=== PATIENT | female | born 1990 | race Caucasian/White ===

== ENCOUNTER 2018-12-23 15:16 | Emergency (ER) | payer BC ==
[2018-12-23 16:00] LABS: #Basophils 0.1 thou/uL (0.0-0.2); #Eosinphils 0.3 thou/uL (0.0-0.7); #Monocytes 0.6 thou/uL (0.11-0.59); #Neutrophils 7.6 thou/uL (1.40-6.50); %Basophils 0.7 % (0.0-1.0); %Eosinophils 2.5 % (0.0-10.0); %Lymphocytes 19.2 % (21.0-51.0); %Monocytes 5.3 % (0.0-10.0); %Neutrophils 72.3 % (42.0-75.0); Hemoglobin 12.4 g/dL (12.0-16.0); Mean Corpuscular HGB CONC 34.9 g/dL (32.0-36.0); Mean Corpuscular Hemoglobin 31.4 pg (27.0-31.0); Mean Corpuscular Volume 89.8 fL (78.0-98.0); Mean Platelet Volume 8.6 fL (7.4-10.4); Platelet Count 168 thou/uL (130-400); RBC Distribution Width 12.1 % (11.5-14.5); Red Blood Cell (RBC) Count 3.96 mill/uL (4.20-5.40); White Blood Cell (WBC) Count 10.5 thou/uL (4.8-10.8)
[2018-12-23 16:22] LABS: ALT (SGPT) 11 U/L (8-55); AST (SGOT) 15 U/L (5-34); Albumin 3.9 g/dL (3.5-5.0); Alkaline Phosphatase 51 U/L (40-150); Anion Gap 12 mmol/L (10-20); BUN (Urea Nitrogen) 6 mg/dL (7.0-18.7); Bilirubin, Total 0.3 mg/dL (0.2-1.2); CK (CPK) 12 U/L (29-168); Calc. Creatinine Clearance 0 mL/min (70-130); Calcium 8.8 mg/dL (7.8-10.44); Carbon Dioxide 22 mmol/L (22-29); Chloride 108 mmol/L (98-107); Estimated GFR-MDRD Greater than 90; Globulin 2.3 g/dL (2.4-3.5); Glucose 101 mg/dL (70-105); Potassium 3.9 mmol/L (3.5-5.1); Protein, Total 6.2 g/dL (6.0-8.3); Sodium 138 mmol/L (136-145)
[2018-12-23] MEDS ORDERED: Acetaminophen 500 MG TAB ONE (17:05)
--- NOTE | 2018-12-23 17:11 | RAD ---
EXAM: Portable chest PROVIDED CLINICAL HISTORY: Chest pain COMPARISON: 08/14/2015 FINDINGS: Cardiac and mediastinal silhouette is within normal limits. No focal consolidation, pleural fluid or pneumothorax evident. IMPRESSION: No evidence for an acute cardiopulmonary process.
--- NOTE | 2018-12-24 12:12 | EKG ---
Test Reason : Blood Pressure : / mmHG Vent. Rate : 079 BPM Atrial Rate : 079 BPM P-R Int : 122 ms QRS Dur : 092 ms QT Int : 360 ms P-R-T Axes : 010 040 025 degrees QTc Int : 412 ms Normal sinus rhythm Normal ECG Confirmed by SPENCER SAMPSON D.O. ([id number]), editor book MENG PEGUERO ([id number]) on 12/24/2018 12:12:09 PM Referred By: Confirmed By:SPENCER SAMPSON D.O.
== END 2018-12-23 18:51 | disposition home or self-care (01) ==
LOC: ERS 15:16
DX: O99.89 Other specified diseases and conditions complicating pregnancy, childbirth and the puerperium (principal); R06.02 Shortness of breath; Z3A.21 21 weeks gestation of pregnancy
CPT/HCPCS: 36415; 71045; 80053; 82550; 83880; 84484; 85025; 85379; 93005

== ENCOUNTER 2019-01-11 04:05 | Day surgery (SDC) | payer BC ==
[2019-01-11 04:40] VITALS: BMI 29.0
[2019-01-11 05:21] LABS: Amnisure Test No Membranes Rupture (No Rupture)
[2019-01-11 05:22] LABS: Amnisure Internal Control QC ACCEPTABLE (ACCEPTABLE)
[2019-01-11] MEDS ORDERED: hydrALAZINE 20 MG/ML VIAL SLOW IVP PRN (05:59)
--- NOTE | 2019-01-11 07:01 | PRG ---
DATE OF SERVICE: 01/11/2019 CHIEF COMPLAINT: Leakage of fluid. HISTORY OF PRESENT ILLNESS: The patient is a 28-year-old G2, P1 female with an intrauterine at 25 weeks gestation, who is presenting to Labor and Delivery after experiencing some vaginal wetness these last couple of days. The patient initially thought it was due to being outside in the heat and began to worry this morning thinking it may be something more serious. The patient denies needing to use a pad, just reports wetness requiring her to change her underwear a couple of times in the last few days. The patient denies any persistence. The patient denies vaginal bleeding. She denies any change in her discharge other than described. She denies any recent illness, fever, falls, headache, chest pain, or shortness of breath. She has recently been evaluated for shortness of breath and is currently on a heart monitor, but states that seems to have gotten better. She denies diarrhea, constipation, hip problems, knee problems, or muscle weakness. Denies any new rashes, vaginal bleeding, leakage of fluid, urinary urgency, or frequency. PAST MEDICAL HISTORY: Negative. PAST SURGICAL HISTORY: Negative. OBSTETRIC HISTORY: She had HELLP syndrome with her last . SOCIAL HISTORY: Denies drug, alcohol, or tobacco use. ALLERGIES: AMOXICILLIN, CEPHALEXIN AND IBUPROFEN. CURRENT MEDICATIONS: She is on a daily aspirin and a vitamin with iron. PHYSICAL EXAMINATION: VITAL SIGNS: Blood pressure 116/72, heart rate of 82, respiratory rate of 18, temperature 98.4. GENERAL: She appears to be in no acute distress. She is alert, oriented, cooperative, and pleasant to interact with. HEENT: Head is normocephalic, atraumatic. LUNGS: Clear to auscultation bilaterally. HEART: Has regular rate and rhythm. ABDOMEN: Gravid and soft, nontender. EXTREMITIES: Nontender, nonedematous. : Vulva is without masses, lesions, or erythema. Perineum does appear slightly moistened. On speculum exam, there is a minimal amount of discharge present. No noticeable odor or distinct qualities of the discharge. Cervix is visibly closed and full. Cervix appears as nonerythematous and no visible lesions. VPIII was collected. LABORATORY DATA: AmniSure test was negative, collected by the nursing staff. VPIII is pending. ASSESSMENT AND PLAN: The patient is a 28-year-old G2, P1 female with an intrauterine at 25 weeks gestation, who came in for some leakage of fluid. There is no evidence of rupture of membranes at this time as supported by negative AmniSure test and negative pooling on physical exam. A VPIII is pending, which should result later in the morning. The patient has been given reassurance and is being discharged to home. She has a followup appointment with Ms. Kiarra Lucero in 2 weeks, which we have encouraged that she keep. The patient will be calling back later this morning after she wakes to get her VPIII results. Job ID: [id number] MTDD
--- NOTE | 2019-01-11 13:05 | PDOC.EVN ---
Event Note - Event Note Event Note: Post Triage lab check: BV noted Called in Flagyl 500mg po BID x [address] at her request.
== END 2019-01-11 06:10 | disposition home or self-care (01) ==
LOC: L&D/OP 04:05
PROVIDERS: ATTEND Obstetrics & Gynecology
DX: O99.89 Other specified diseases and conditions complicating pregnancy, childbirth and the puerperium (principal); N89.8 Other specified noninflammatory disorders of vagina; Z3A.25 25 weeks gestation of pregnancy; Z79.82 Long term (current) use of aspirin; Z79.899 Other long term (current) drug therapy; Z88.0 Allergy status to penicillin; Z88.1 Allergy status to other antibiotic agents; Z88.8 Allergy status to other drugs, medicaments and biological substances
CPT/HCPCS: 84112; 87480; 87510; 87660

== ENCOUNTER 2019-03-04 23:21 | Day surgery (SDC) | payer BC ==
[2019-03-04 23:45] VITALS: BP 116/72; TEMP 98.1; BMI 30.2
[2019-03-05] MEDS ORDERED: hydrALAZINE 20 MG/ML VIAL SLOW IVP PRN (00:21)
--- NOTE | 2019-03-05 00:23 | PDOC.FPROB ---
FMR OB H&P: HPI - History of Present Illness Chief Complaint: abdominal cramping Indentification: 28 y/o @ 32.3 WGA History of Present Illness: Presents for abdominal cramping since 1930 tonight. She reports it feels like her abdomen is tightening up every 5 minutes or so and it is not painful. She reports drinking plenty of water after this started, but it has continued so she decided to come in. She endorses good movement. Denies vaginal bleeding, d/c, LOF, dysuria, hematuria. Primary Care Physician: Juana Lucero FMR OB H&P: Current - Care : 2 Para: 0101 Gestational age: 32.3 FMR OB H&P: History - Past Medical History PMH: None - OB History OB History: 1 prior - induction for severe pre-e/HELLP - Surgical History Sx History: Denies - Social History Social History: Denies tobacco, EtOH, or drug use - Family History Family History: PGF - brain aneurysm FMR OB H&P: Medications - Current Home Medications: Medication Instructions Recorded Confirmed Type Aspirin [Ecotrin] 81 mg PO DAILY 01/11/19 03/04/19 History Vitamin 1 tablet PO DAILY 01/11/19 03/04/19 History Allergies/Adverse Reactions: Allergies Allergy/AdvReac Type Severity Reaction Status Date / Time amoxicillin Allergy Intermediate Hives Verified 01/11/19 04:37 cephalexin monohydrate Allergy Verified 08/11/16 11:13 [From Keflex] ibuprofen Allergy Verified 08/11/16 11:13 FMR OB H&P: ROS - Review of Systems General: denies: fever/chills, fatigue Eyes: denies: vision changes, double vision ENT: denies: nasal congestion, sore throat Cardiovascular: denies: chest pain, edema Respiratory: denies: cough, shortness of breath Gastrointestinal: reports: abdominal pain. denies: nausea, vomiting, diarrhea, constipation Genitourinary (Female): denies: dysuria, hematuria, vaginal discharge, vaginal bleeding, vaginal pressure Musculoskeletal: denies: pain, tenderness Neurologic: denies: numbness, weakness Integumentary: denies: itching, rash FMR OB H&P: Vital Signs - Maternal Vital signs: Vital Signs - First Documented Temp Pulse Resp BP 98.1 F 82 18 116/72 03/04/19 23:41 03/04/19 23:41 03/04/19 23:41 03/04/19 23:41 - Heart Tones Baseline: 130 Variability: moderate Acceleration: present Deceleration: absent Category: category 1 [place] contractions every: None FMR OB H&P: Physical Exam - Physical Exam General: NAD, awake, alert and oriented HEENT: MMM, conjunctiva clear, grossly normal vision, grossly normal hearing Neck: supple, no LAD Heart: pulses present, no edema General: no respiratory distress Abdomen: soft, gravid, non-tender Musculoskeletal: normal gait and station, pulses present Neurological: no tremor, no focal deficit Skin: good tugor, capillary refill <2 seconds - Pelvic Exam SVE: closed/thick/high FMR OB H&P: A/P - Problem List (1) contractions Current Visit: Yes Status: Acute Code(s): O47.9 - FALSE LABOR, UNSPECIFIED Assessment and Plan: Pt presents due to abdominal cramping, no ctx on toco Pt checked and was closed/thick/high -Encouraged hydration -Continue f/u with [facility] -Gave labor precautions Disposition: d/c home as low suspicion of labor. Return precautions given. Discussion: Date/Time: 03/05/1920 This H&P was discussed with Dr. Concepcion who agrees with the above documentation and plan. Signature: Michelle Wolff MD, PGY-3
--- NOTE | 2019-03-05 01:00 | HP ---
TIME OF EVALUATION: By me was 0015 hours to 0030 hours. LOCATION: Triage in Labor and Delivery bed A. This is a patient of Kiarra Lucero CNM The patient was first seen by Michelle Wolff MD and this is my faculty attestation. I have seen and evaluated the patient at bedside. I have performed a cervical examination myself. CHIEF COMPLAINT: The patient here with possible contractions at 32 weeks. HISTORY OF PRESENT ILLNESS: This is a 28-year-old G2, P1, at 32 weeks and 3 days with complaint of possible contractions versus [place] Villegas. She denies leakage of fluid or vaginal bleeding and has good movement. She denies any urinary complaints and has no recent trauma. REVIEW OF SYSTEMS: Complete review of systems was checked and was otherwise negative, unless specified in the HPI. PAST OB HISTORY: Includes an early induction at 36 weeks for -induced hypertension/HELLP syndrome. PAST MEDICAL HISTORY: Otherwise negative. MEDICATIONS: Include vitamins and aspirin. ALLERGIES: AMOXICILLIN, KEFLEX, AND IBUPROFEN. PHYSICAL EXAMINATION: VITAL SIGNS: Her blood pressure is 116/72, and she is afebrile. Clinically, she is in no acute distress. ABDOMEN: Soft and nontender. : I performed a vaginal exam myself and find her cervix to be closed, thick, and high. There is no evidence of vaginal bleeding or leakage of fluid on exam. On monitor, I have reviewed the strip and it is category 1/reactive nonstress test. There are no contractions on tocodynamometer. ASSESSMENT: This is a G2, P1, at 32 weeks and 3 days with suspected [place] Vil[place] contractions as her cervix is closed. PLAN: 1. Reassurance given. 2. Plan of care reviewed with her. 3. Okay for outpatient management. Job ID: [id number]
== END 2019-03-05 00:37 | disposition home health service (06) ==
LOC: L&D/OP 23:21
PROVIDERS: ATTEND Advanced Practice Midwife
DX: O47.03 False labor before 37 completed weeks of gestation, third trimester (principal); Z3A.32 32 weeks gestation of pregnancy; Z79.82 Long term (current) use of aspirin; Z88.0 Allergy status to penicillin; Z88.1 Allergy status to other antibiotic agents; Z88.6 Allergy status to analgesic agent

== ENCOUNTER 2019-04-04 15:13 | Day surgery (SDC) | payer BC ==
[2019-04-04 16:06] VITALS: BP 136/90; TEMP 98.1; BMI 32.0
[2019-04-04] MEDS ORDERED: hydrALAZINE 20 MG/ML VIAL SLOW IVP PRN (16:15)
--- NOTE | 2019-04-04 16:16 | PDOC.EVN ---
Event Note - Event Note Event Note: At Bedside now Eval of BP and CBC, and CMP
--- NOTE | 2019-04-04 16:18 | PDOC.LDHP ---
Labor and Delivery H&P HPI: Here for BP observation Patient of Edin Lucero, states BP at home 130/90s HPi: 28 yo with HX IOL at 36 weeks in past for HELLP. here for boderline BPs at home, and prior HX. No visual changes or RUQ pain. Good FM. no VB, no LOF , rare CTX. Review of Systems: complete ROS completed and as per HPI Current gestational age (weeks): 36 (6 days) Due date: 04/26/19 Dating criteria: last menstrual period Grav: 2 Para: 1 OB History Details: PTB x 1 at 36 weeks Current complications: gestational hypertension Abnormal US findings: No Past Medical History: None Current medications: none, other (ASA) Previous surgical history: other ([place]) Allergies/Adverse Reactions: Allergies Allergy/AdvReac Type Severity Reaction Status Date / Time amoxicillin Allergy Intermediate Hives Verified 01/11/19 04:37 cephalexin monohydrate Allergy Verified 08/11/16 11:13 [From Keflex] ibuprofen Allergy Verified 04/04/19 15:58 Social history: none - Physical Exam Vital signs reviewed and normal: yes (130/85 77 18) General: NAD Heart: RRR Lungs: CTAB Abdomen: gravid Extremeties: no edema FHT: category 1 [place] contractions every: none - Assessment 36 weeks 6 days with possible GHTN...here BPs ok. HX HEELP - Plan Plan: observation in L&D (Serial BPs; Draw CBC and CMP, follow for now...NST reactive)
--- NOTE | 2019-04-04 16:51 | PDOC.EVN ---
Event Note - Event Note Event Note: BPs 130/80s.. Labs just drawn
[2019-04-04 16:56] LABS: Hemoglobin 14.5 g/dL (12.0-16.0); Mean Corpuscular Hemoglobin 32.4 pg (27.0-31.0); Mean Corpuscular Volume 89.9 fL (78.0-98.0); Mean Platelet Volume 10.2 fL (7.4-10.4); Platelet Count 138 thou/uL (130-400); RBC Distribution Width 12.2 % (11.5-14.5); Red Blood Cell (RBC) Count 4.49 mill/uL (4.20-5.40); White Blood Cell (WBC) Count 10.8 thou/uL (4.8-10.8)
[2019-04-04 17:20] LABS: ALT (SGPT) 13 U/L (8-55); AST (SGOT) 21 U/L (5-34); Albumin 3.5 g/dL (3.5-5.0); Alkaline Phosphatase 157 U/L (40-110); Anion Gap 12 mmol/L (10-20); BUN (Urea Nitrogen) 7 mg/dL (7.0-18.7); Bilirubin, Total 0.4 mg/dL (0.2-1.2); Calc. Creatinine Clearance 164 mL/min (70-130); Calcium 10.2 mg/dL (7.8-10.44); Carbon Dioxide 22 mmol/L (22-29); Chloride 106 mmol/L (98-107); Estimated GFR-MDRD Greater than 90; Globulin 3.2 g/dL (2.4-3.5); Glucose 85 mg/dL (70-105); Potassium 3.9 mmol/L (3.5-5.1); Protein, Total 6.7 g/dL (6.0-8.3); Sodium 136 mmol/L (136-145)
--- NOTE | 2019-04-04 17:28 | PDOC.EVN ---
Event Note - Event Note Event Note: Labs are normal F/U BP in 2 days in clinic
== END 2019-04-04 17:40 | disposition home or self-care (01) ==
LOC: L&D/OP 15:13
PROVIDERS: ATTEND Advanced Practice Midwife
DX: O13.3 Gestational [pregnancy-induced] hypertension without significant proteinuria, third trimester (principal); Z3A.36 36 weeks gestation of pregnancy; Z79.82 Long term (current) use of aspirin; Z88.0 Allergy status to penicillin; Z88.1 Allergy status to other antibiotic agents; Z88.8 Allergy status to other drugs, medicaments and biological substances
CPT/HCPCS: 36415; 80053; 85027; 99283

== ENCOUNTER 2019-04-15 00:48 | Day surgery (SDC) | payer BC ==
[2019-04-15 01:24] VITALS: BMI 29.9
[2019-04-15] MEDS ORDERED: hydrALAZINE 20 MG/ML VIAL SLOW IVP PRN (01:35)
--- NOTE | 2019-04-15 01:42 | PDOC.FPROB ---
FMR OB H&P: HPI - History of Present Illness Chief Complaint: elevated BP with vision changes at home Indentification: @ 38.3 WGA (JOVANNI 04/26/19) History of Present Illness: 28YO @ 38.3 WGA (JOVANNI 04/26/19) who presents to L&D after having vision changes at home with associated elevated BP @ ~ 21:30 yesterday evening. Patient reports she had sudden onset vision changes while sitting at home looking at her phone so she checked her BP which she noted to be 147/98. She then turned off the lights and fans and her vision changes subsided and rechecked her BP ~ 2 hours later and it was still elevated at 143/96. She states she then called the on-call line for her PCP's office who advised her to come to L&D for monitoring and evaluation. She reports some associated intermittent RUQ discomfort that she attributes to positioning/movement that began many days ago. Denies any associated headache but does reports feeling like her hands and feet are slightly more swollen than usual. No chest pain, SOB, fever/chills or N/V/D. Primary Care Physician: Jazmine FMR OB H&P: Current - Care : 2 Para: 0101 Gestational age: 38.3 Due date: 04/26/19 Course/Complications: borderline BPs but no diagnosis of gestational HTN or pre-e this - OB Labs Blood type: O RH: positive Antibody Screen: negative HIV: negative RPR: negative HepBsAg: negative Rubella: immune Urine drug screen: not done Gonorrhea: negative Chlamydia: negative GBS: negative FMR OB H&P: History - Past Medical History PMH: none - OB History OB History: #1: HELLP syndrome requiring IOL @ 36 WGA; - MEAL PACKER History MEAL PACKER History: Pap UTD & NILM; No h/o STIs - Surgical History Sx History: none - Social History Social History: No TAD - Family History Family History: Mom- pre-e during with patient FMR OB H&P: Medications - Current Home Medications: Medication Instructions Recorded Confirmed Type Aspirin [Ecotrin Low Strength] 81 mg PO DAILY 01/11/19 04/04/19 History Vitamin 1 tablet PO DAILY 01/11/19 04/04/19 History Allergies/Adverse Reactions: Allergies Allergy/AdvReac Type Severity Reaction Status Date / Time amoxicillin Allergy Intermediate Hives Verified 01/11/19 04:37 cephalexin monohydrate Allergy Verified 08/11/16 11:13 [From Keflex] ibuprofen Allergy Verified 04/04/19 15:58 FMR OB H&P: ROS - Review of Systems General: denies: fever/chills, weight/appetite/sleep changes Eyes: reports: vision changes, scotomas ENT: reports: rhinorrhea. denies: nasal congestion, sore throat Cardiovascular: reports: edema. denies: chest pain, palpitation Respiratory: denies: cough, shortness of breath Gastrointestinal: reports: abdominal pain. denies: nausea, vomiting, diarrhea, constipation Genitourinary (Female): denies: dysuria, hematuria, vaginal discharge, vaginal pain, vaginal bleeding, contractions, vaginal pressure Musculoskeletal: reports: pain (back pain). denies: arthritis/arthralgias Neurologic: denies: seizures, headache Integumentary: denies: itching, rash Endocrine: denies: polydipsia, polyuria Psychological: denies: depression, anxiety FMR OB H&P: Vital Signs - Maternal Vital signs: BP: 143/92 HR: 65 - Heart Tones Baseline: 130 Variability: moderate Acceleration: present Deceleration: absent [place] contractions every: no contractions noted FMR OB H&P: Physical Exam - Physical Exam General: NAD, awake, alert and oriented HEENT: normocephalic and atraumatic, MMM, conjunctiva clear, grossly normal vision, grossly normal hearing Neck: supple, FROM Heart: RRR, normal S1/S2, no murmurs/rubs/gallops, pulses present, no edema General: CTAB, no respiratory distress, good air movement, no rales/rhonchi, no wheezing, no retractions Abdomen: gravid, non-tender, bowel sound present, other Musculoskeletal: normal gait and station, FROM in all four extremities Neurological: cranial nerves II through XII intact, no focal deficit Skin: no rash, good tugor Lymphatic: no unusual bruising or bleeding Psychiatric: intact recent and remote memory, good judgement and insight, normal mood and affect - Pelvic Exam Vulva: normal hair distribution, appropriate macrina stage Membranes: intact Presentation: cephalic FMR OB H&P: A/P - Problem List (1) Elevated blood pressure affecting in third trimester, antepartum Status: Acute Code(s): O16.3 - UNSPECIFIED MATERNAL HYPERTENSION, THIRD TRIMESTER (2) History of HELLP syndrome, currently Status: Acute Code(s): O09.299 - SUPRVSN OF PREG W POOR REPRODCTV OR OBSTET HISTORY, UNSP TRI (3) History of delivery, currently in third trimester Status: Acute Code(s): O09.213 - SUPRVSN OF PREG W HISTORY OF PRE-TERM LABOR, THIRD TRIMESTER Disposition: 28YO @ 38.3 WGA (JOVANNI 04/26/19) who presented to L&D after having 2 elevated BPs at home with associated vision changes. Elevated BP w/o diagnosis of pre-e or gHTN: - Patient had 2 BPs in the 140s/90 at home with associated vision changes that have since resolved. However, intial BP on arrival was still elevated at 143/ 92. - Given h/o HELLP syndrome and the fact that the patient is now at term, low threshold for IOL. Will screen for HELLP vs. pre-e with severe features with CBC , CMP, and LDH and continue to monitor BPs closely. - FHTs reassuring w/ baseline in the 130s & accels present. No contractions noted. - Will also perform a cervical exam to establish hatch score & know what induction agent should be used should patient need to be induced based on labs and BP readings. h/o HELLP syndrome, currently : - Aware, see plan above. h/o delivery: - Aware, patient required IOL @ 36 WGA 2/2 HELLP syndrome. Had a . Dispo: Will continue to monitor closely on L&D pending labs and BP readings. Discussion: Date/Time: 04/15/19 0245 This H&P was discussed with Dr. Fournier who agrees with the above documentation and plan. Addendum - Attending - Attending Attestation Date/Time: 04/17/1925 I personally evaluated the patient and discussed the management with Dr. Morales I agree with the History, Examination, Assessment and Plan documented above with any addition or exceptions noted below. PT has had a couple mild range blood pressures, pih work up significant for platelets of 119. history of HELLP. has declined iol. Has f/u with MS Suma Lucero Wednesday
[2019-04-15 02:46] LABS: #Basophils 0.1 thou/uL (0.0-0.2); #Eosinphils 0.4 thou/uL (0.0-0.7); #Lymphocytes 3.2 thou/uL (1.20-3.40); #Monocytes 0.8 thou/uL (0.11-0.59); #Neutrophils 6.8 thou/uL (1.40-6.50); %Basophils 0.6 % (0.0-1.0); %Eosinophils 3.6 % (0.0-10.0); %Lymphocytes 28.6 % (21.0-51.0); %Monocytes 7.3 % (0.0-10.0); %Neutrophils 59.9 % (42.0-75.0); Hemoglobin 14.7 g/dL (12.0-16.0); Mean Corpuscular HGB CONC 35.4 g/dL (32.0-36.0); Mean Corpuscular Volume 90.4 fL (78.0-98.0); Mean Platelet Volume 10.1 fL (7.4-10.4); Platelet Count 119 thou/uL (130-400); Platelet Morphology Comment Appears Decreased; RBC Distribution Width 11.8 % (11.5-14.5); Red Blood Cell (RBC) Count 4.59 mill/uL (4.20-5.40); White Blood Cell (WBC) Count 11.3 thou/uL (4.8-10.8)
[2019-04-15 02:51] LABS: ALT (SGPT) 8 U/L (8-55); AST (SGOT) 16 U/L (5-34); Albumin 3.2 g/dL (3.5-5.0); Alkaline Phosphatase 154 U/L (40-110); Anion Gap 14 mmol/L (10-20); BUN (Urea Nitrogen) 8 mg/dL (7.0-18.7); Bilirubin, Total 0.2 mg/dL (0.2-1.2); Calc. Creatinine Clearance 161 mL/min (70-130); Calcium 8.9 mg/dL (7.8-10.44); Carbon Dioxide 20 mmol/L (22-29); Chloride 108 mmol/L (98-107); Estimated GFR-MDRD Greater than 90; Glucose 85 mg/dL (70-105); Potassium 3.8 mmol/L (3.5-5.1); Protein, Total 6.2 g/dL (6.0-8.3); Sodium 138 mmol/L (136-145)
[2019-04-15 04:25] LABS: Creatinine, Urine 58.48 mg/dL (47-110)
--- NOTE | 2019-04-15 04:32 | PDOC.BPN ---
- Brief Progress Note 28YO @ 38.3 WGA (JOVANNI 04/26/19) who presented to L&D after having 2 elevated BPs at home with associated vision changes. Elevated BP w/o diagnosis of pre-e or gHTN: - Patient had 2 BPs in the 140s/90 at home with associated vision changes that have since resolved. However, 2 intial BPs on arrival was still elevated at 143/ 92 & 147/88. Third & final elevated reading was 137/90 @ 0227. - CBC, CMP, and LDH WNLs with a Plt count of 119, AST/ALT of 16/8, alk phos of 154, & LDH of 146. Normal Urine protein:Cr ratio of 0.22. - Patient refused a cervical exam as she desires to go into labor "naturally" and would not like to take the chance of a cervical exam pushing her into labor. h/o HELLP syndrome, currently : - Aware, see plan above. h/o delivery: - Aware, patient required IOL @ 36 WGA 2/2 HELLP syndrome. Had a . Dispo: Will d/c home with instructions to continue home BP monitoring 2x/day as recommended by her PCP and to keep her appt with Dr. Lucero as scheduled.
== END 2019-04-15 04:40 | disposition home or self-care (01) ==
LOC: L&D/OP 00:48
PROVIDERS: ATTEND Advanced Practice Midwife
DX: O99.89 Other specified diseases and conditions complicating pregnancy, childbirth and the puerperium (principal); R03.0 Elevated blood-pressure reading, without diagnosis of hypertension; H53.9 Unspecified visual disturbance; O09.293 Supervision of pregnancy with other poor reproductive or obstetric history, third trimester; O09.213 Supervision of pregnancy with history of pre-term labor, third trimester; Z3A.38 38 weeks gestation of pregnancy; Z79.82 Long term (current) use of aspirin; Z88.0 Allergy status to penicillin; Z88.1 Allergy status to other antibiotic agents; Z88.6 Allergy status to analgesic agent
CPT/HCPCS: 36415; 80053; 82570; 83615; 84156; 85025; 99283

== ENCOUNTER 2019-04-19 22:19 | Inpatient (IN) | payer BC ==
[2019-04-19 23:12] VITALS: BMI 33.0
[2019-04-19] MEDS ORDERED: Ondansetron PF 4 MG/2 ML Vial IVP PRN (23:20)
[2019-04-19] MEDS ORDERED: Promethazine HCl 25 MG/ML VIAL IM PRN (23:20)
[2019-04-19] MEDS ORDERED: NS / Oxytocin 40 units/1000ml 1,000 ML IV PRN (23:20)
[2019-04-19] MEDS ORDERED: Lidocaine 1% (PF) 30 ML VIAL SC PRN (23:20)
[2019-04-19] MEDS ORDERED: hydrALAZINE 20 MG/ML VIAL SLOW IVP PRN (23:20)
[2019-04-19] MEDS ORDERED: HYDROcodone/Acetaminophen 5/325 mg Tablet PO PRN ×2 (23:20)
[2019-04-19] MEDS ORDERED: Butorphanol Tartrate 1 MG/ML VIAL SLOW IVP PRN (23:20)
--- NOTE | 2019-04-19 23:24 | PDOC.EVN ---
Event Note - Event Note Event Note: Courtesy orders [placed by me, as requested. Ordered Vanco IV if (only if) GBS carrier as PCN allergy stated and to keflex ( cephalosporins). Checking the PNR to see if GBS pos Pt not seen...just orders placed per request
--- NOTE | 2019-04-19 23:26 | PDOC.EVN ---
Event Note - Event Note Event Note: GBS neg...cancel vanco
[2019-04-19] MEDS ORDERED: Vancomycin HCl 1 GM in Premix Bag 1 BAG IVPB SCH (23:30)
[2019-04-20 00:15] LABS: Hemoglobin 15.4 g/dL (12.0-16.0); Mean Corpuscular HGB CONC 34.4 g/dL (32.0-36.0); Mean Corpuscular Hemoglobin 30.7 pg (27.0-31.0); Mean Corpuscular Volume 89.2 fL (78.0-98.0); Mean Platelet Volume 11.1 fL (7.4-10.4); Platelet Count 129 thou/uL (130-400); RBC Distribution Width 11.8 % (11.5-14.5)
[2019-04-20 00:30] LABS: ALT (SGPT) 16 U/L (8-55); AST (SGOT) 26 U/L (5-34); Albumin 3.6 g/dL (3.5-5.0); Alkaline Phosphatase 163 U/L (40-110); Anion Gap 15 mmol/L (10-20); BUN (Urea Nitrogen) 9 mg/dL (7.0-18.7); Bilirubin, Total 0.4 mg/dL (0.2-1.2); Calc. Creatinine Clearance 142 mL/min (70-130); Calcium 8.6 mg/dL (7.8-10.44); Carbon Dioxide 19 mmol/L (22-29); Chloride 107 mmol/L (98-107); Estimated GFR-MDRD Greater than 90; Globulin 2.4 g/dL (2.4-3.5); Glucose 72 mg/dL (70-105); Potassium 3.7 mmol/L (3.5-5.1); Sodium 137 mmol/L (136-145)
[2019-04-20 00:47] LABS: HBSAg Index 0.17 S/CO (0-0.99); HIV (1/2) Antibody/Antigen Non-Reactive (NonReactive); HIV 1/2 INDEX 0.08 S/CO (<1.00); Hep B Surf Ag Non-Reactive S/CO (NonReactive); Syphilis Antibody Nonreactive (Nonreactive); Syphilis Antibody Index 0.04 S/CO (<1.00 Non-Reactive)
[2019-04-20] MEDS ORDERED: NS w/ Oxytocin 10 units 500 ML IV SCH (06:00)
[2019-04-20] MEDS: Lactated Ringer's 1,000 ML IV SCH ×2 (06:27→18:07)
[2019-04-20] MEDS ORDERED: Fentanyl 4 mcg/Bup 0.1% Cadd 100 ML ONE (07:45)
[2019-04-20] MEDS ORDERED: Promethazine HCl 25 MG/ML VIAL IM PRN ×2 (08:31→09:34)
[2019-04-20] MEDS ORDERED: diphenhydrAMINE 50 MG/ML VIAL IVP PRN ×2 (08:31→09:34)
[2019-04-20] MEDS ORDERED: ePHEDrine/0.9% NaCl/PF SYRINGE 50 mg/10 ml SLOW IVP PRN (08:31)
[2019-04-20] MEDS ORDERED: Acetaminophen 325 MG TAB PO PRN (08:31)
[2019-04-20] MEDS ORDERED: Naloxone HCl 0.4 mg/ml Vial IVP PRN ×4 (08:31→09:34)
[2019-04-20] MEDS ORDERED: Lactated Ringer's 500 ML IV PRN (08:31)
[2019-04-20] MEDS ORDERED: Ondansetron PF 4 MG/2 ML Vial IVP PRN ×3 (08:31→12:11)
[2019-04-20] MEDS ORDERED: Bicitra 30 ML UDCUP ONE (08:39)
[2019-04-20] MEDS ORDERED: Fentanyl 4 mcg/Bupivacaine 0.1% Cassette 100 ML EPIDURAL SCH (08:45)
[2019-04-20] MEDS ORDERED: Communication Order-Pharmacy FS SCH ×2 (08:45→09:45)
[2019-04-20] MEDS ORDERED: Lidocaine 2% 10 ML INJ ONE (08:46)
[2019-04-20] MEDS ORDERED: PHENYLEPHRINE-NS 100 MCG/ML 10 ML SYRINGE ONE (08:47)
[2019-04-20] MEDS ORDERED: ePHEDrine/0.9% NaCl/PF SYRINGE 50 mg/10 ml ONE ×2 (08:47→13:42)
[2019-04-20] MEDS ORDERED: Oxytocin 10 UNITS/ML VIAL ONE ×2 (09:03→09:04)
[2019-04-20] MEDS ORDERED: Ondansetron PF 4 MG/2 ML Vial ONE (09:04)
[2019-04-20] MEDS ORDERED: MORPHINE 5 MG/10 ML PF VIAL ONE (09:08)
[2019-04-20] MEDS ORDERED: Ketorolac Tromethamine 30 MG/ML VIAL ONE (09:08)
[2019-04-20] MEDS ORDERED: Metoclopramide HCl 10 MG/2 ML VIAL ONE (09:09)
[2019-04-20] MEDS ORDERED: HYDROmorphone 2 MG/ML VIAL SLOW IVP PRN (09:34)
[2019-04-20] MEDS ORDERED: Naloxone HCl 0.4 mg/ml Vial IV PRN (09:34)
[2019-04-20] MEDS ORDERED: Meperidine HCl/PF 25 MG/ML VIAL SLOW IVP PRN (09:34)
[2019-04-20] MEDS ORDERED: Promethazine HCl 25 MG SUPP PR PRN (09:34)
[2019-04-20] MEDS ORDERED: L&D-Morphine 4 MG/ML VIAL SLOW IVP PRN (09:34)
[2019-04-20] MEDS ORDERED: Ondansetron HCl/PF 4 MG/2 ML Vial IVP PRN (09:34)
[2019-04-20 09:50] LABS: Actual Bicarbonate (HCO3a) 22.5 mEq/L (22-28); Analyzer IN Cardio OR; Base Excess (BEa) -12.4 mEq/L (-2.0 to +3.0)
[2019-04-20 09:51] LABS: Actual Bicarbonate (HCO3v) 17 mEq/L (22-28); Analyzer IN Cardio OR; Base Excess -12.1 mEq/L (-2.0 to +3.0)
[2019-04-20 09:54] LABS: pH (Cord, venous) 7.15 (7.32-7.43)
[2019-04-20] MEDS ORDERED: hydrALAZINE 20 MG/ML VIAL SLOW IVP PRN (12:11)
[2019-04-20] MEDS ORDERED: diphenhydrAMINE 25 MG CAP PO PRN (12:11)
[2019-04-20] MEDS ORDERED: Lanolin Ointment 7 GM TUBE TOP PRN (12:11)
[2019-04-20] MEDS ORDERED: Zolpidem Tartrate 5 MG TAB PO PRN (12:11)
[2019-04-20] MEDS ORDERED: Bupivacaine 0.25% HCL 30 ML VIAL ONE (13:42)
[2019-04-20] MEDS: Misoprostol 100 MCG TAB PO SCH (14:04)
--- NOTE | 2019-04-20 15:53 | OP ---
DATE OF PROCEDURE: 04/20/2019 PREOPERATIVE DIAGNOSES: 1. Intrauterine at 39 weeks. 2. Gestational hypertension. 3. Non-reassuring heart tones, remote from delivery. POSTOPERATIVE DIAGNOSES: 1. Intrauterine at 39 weeks. 2. Gestational hypertension. 3. Non-reassuring heart tones, remote from delivery. PROCEDURE PERFORMED: Primary lower transverse section. COMMERCIAL FIELD INSPECTOR: Kiarra Lucero CNM ANESTHESIA: Epidural. ESTIMATED BLOOD LOSS: 550 mL. COMPLICATIONS: None. COUNTS: Correct. SPECIMENS: Blood gas and placenta. FINDINGS: Male delivered in vertex presentation on 04/20/2019 at 0901 hours at 39 weeks and 1 day gestation. Weight is 2903 g. Apgars were 8 and 9. INDICATIONS: During the assessment in the OR with the patient, blood pressures were noted to be in the 140s on mom suggesting a good response to ephedrine and fluid bolus. However, given the what appeared to be significant marked variability with heart tones bouncing between the 150s and the 100s, decision was made to go ahead and proceed with . DESCRIPTION OF PROCEDURE: I was called to Ms. Cohn's room, who is a 28-year-old female, who presented to Labor and Delivery for induction of labor secondary to gestational hypertension at 39 weeks. I was called for heart tones being down. When I arrived, heart tones were in the 60s and 70s. Attempts were made for resuscitation with position change, fluid bolus, ephedrine has been given on two occasions. Just prior to this episode, the patient had been given an epidural and dropping her blood pressures from the 160s down to the 120s, believing this to be the cause of her heart bradycardia. Attempts were made to give time for resuscitation efforts to take effect. A total of 10 mg of ephedrine were given and again fluid was being bolus position. The patient was placed in hands and knees, which seemed to allow with response with heart tones coming up into the 90s. By this time, we are about 9 minutes out from her persistent bradycardia into the 60s. Being unable to check blood pressure in response to ephedrine, the patient was placed back on the left lateral position. By the time, she was placed back in the left lateral position, heart tones are back down in the 70s. Given the time frame that we had, decision was made to reassess back in the operating room, which had been prepped for the patient. In the operating room, the patient was placed in supine position with a leftward tilt. Heart tones were then Doppler'd and found to be in the 120s. At this point in time hearing the heart tones in the 120s, diamond to emergent was halted. Heart tones were continued to be followed, which seemed to arise up into the 150s. I heard was an arrhythmia and what sounded like the marked variability as the heart rate was shifting very quickly from the 150s down to the 100s. Once this began, decision was made to proceed with . The patient was prepped and draped in normal sterile fashion. She was placed in the supine position with a leftward tilt. A Pfannenstiel skin incision was made and it was carried down to the level of the fascia. Fascia was incised and the fascial incision was extended laterally with Khan scissors. The underlying rectus muscles superiorly and inferiorly were bluntly and sharply dissected off the overlying rectus fascia. The peritoneum was entered into bluntly and Jamel O retractor was then placed for better visualization. A hysterotomy was made in the lower uterine segment in a transverse fashion. was delivered in vertex presentation to the sterile field. The fetus was noted to have grimace in tone with both hands clenched. Cord was clamped and cut, and the was handed off to the waiting attendants. The segment was collected for cord blood gas and cord blood was collected for routine management. The placenta was then extracted with the uterine massage and the uterus was cleared of all clot and debris. The uterus was then closed with #1 Monocryl in a running locked fashion followed by second layer of the same suture in an imbricating fashion. Good hemostasis was achieved and the abdomen was then irrigated with good hemostasis confirmed. Both tubes and ovaries were inspected and found to be normal in appearance. The peritoneum was then closed with 2-0 chromic in a running fashion. The fascia was closed with 0 Vicryl in a running fashion. The subcuticular fat was closed with #2 plain gut in a running fashion. The skin was closed with 4-0 Monocryl in a running fashion. The patient was then taken to recovery room in stable condition. Job ID: [id number]
[2019-04-20] MEDS: Ketorolac Tromethamine 30 MG/ML VIAL IVP PRN ×2 (17:56→23:57)
[2019-04-20] MEDS: Docusate Calcium (SURFAK) 240 MG CAP PO SCH (22:03)
[2019-04-21 05:56] LABS: Mean Corpuscular HGB CONC 33.3 g/dL (32.0-36.0); Mean Corpuscular Hemoglobin 30.3 pg (27.0-31.0); Mean Corpuscular Volume 90.8 fL (78.0-98.0); Mean Platelet Volume 10.6 fL (7.4-10.4); Platelet Count 104 thou/uL (130-400); RBC Distribution Width 11.8 % (11.5-14.5); Red Blood Cell (RBC) Count 3.65 mill/uL (4.20-5.40); White Blood Cell (WBC) Count 10.4 thou/uL (4.8-10.8)
--- NOTE | 2019-04-21 08:13 | PRG ---
DATE OF SERVICE: 04/21/2019 SUBJECTIVE: The patient is postoperative day 1, status post a primary for nonreassuring heart tones with severe bradycardia. For complete details, please refer to the operative note. The patient overnight has done well. She had her Pastrana removed and is able to void on her own this morning at 6 o'clock. She reports that she has been receiving Toradol for pain control and has hydrocodone. She reports she is able to ambulate and tolerate p.o. OBJECTIVE: VITAL SIGNS: This morning blood pressure is 131/78, temperature 98.7, pulse of 80, respiratory rate is 18, and saturating 98% on room air. GENERAL: She appears to be in no acute distress. She is alert and oriented, cooperative and pleasant to interact with. HEENT: Head is normocephalic, atraumatic. Fundus is firm per nursing staff. Incision is clean, dry, and intact. LABORATORY DATA: hemoglobin is 11.0, hematocrit 33.2, and platelets are 104,000. ASSESSMENT AND PLAN: The patient is postoperative day 1, status post a primary lower transverse section. Receiving routine postoperative care. Anticipate discharge in the next few days. Job ID: [id number]
[2019-04-21] MEDS: Prenatal Vitamin 1 TAB PO SCH (08:18)
[2019-04-21] MEDS: Ketorolac Tromethamine 30 MG/ML VIAL IVP PRN ×2 (08:18→15:45)
[2019-04-21] MEDS: Docusate Calcium (SURFAK) 240 MG CAP PO SCH ×2 (08:18→21:04)
[2019-04-21] MEDS ORDERED: Adacel (T-DAP) 0.5 ML SYRINGE IM ONE (12:11)
[2019-04-21] MEDS: HYDROcodone/Acetaminophen 5/325 mg Tablet PO PRN ×2 (14:27→19:15)
[2019-04-21] MEDS: Simethicone Chewable 80 MG TAB PO PRN (21:04)
[2019-04-22] MEDS: HYDROcodone/Acetaminophen 5/325 mg Tablet PO PRN ×6 (00:02→21:33)
--- NOTE | 2019-04-22 07:21 | PDOC.LDHP ---
Labor and Delivery H&P Chief complaint: other (elevated blood pressures at home) HPI: Patient has been home monitoring BP. Reported via text to primary care provider BP of 150/95-100 and was instructed to go to hospital for evaluation. She denies severe features Current gestational age (weeks): 39 Due date: 04/26/19 Dating criteria: last menstrual period Grav: 2 Para: 1 OB History Details: 2019 5 lbs female. HELLP syndrom IOL at 36 weeks gestation. Current complications: gestational hypertension Abnormal US findings: No Past Medical History: none Current medications: pre-antoinette vitamins, other (ASA 81 mg PO QD) Previous surgical history: none Allergies/Adverse Reactions: Allergies Allergy/AdvReac Type Severity Reaction Status Date / Time amoxicillin Allergy Intermediate Hives Verified 04/19/19 23:08 cephalexin monohydrate Allergy Verified 04/19/19 23:08 [From Keflex] ibuprofen Allergy Verified 04/19/19 23:08 Social history: none - Physical Exam Abnormal vital signs: Mild range blood pressures 150s/90s. General: NAD, resting Lungs: nonlabored breathing Abdomen: gravid FHT: category 1 - Vaginal Exam cm dilated: 1 Effacement: 75% Station: -2 - OB Labs Blood type: O RH: positive Antibody Screen: negative HIV: negative RPR: negative HEPSAg: negative 1 hour GCT: negative GBS: negative Urine drug screen: negative Rubella: immune - Assessment L&D Assessment: medically indicated induction - Plan Plan: admit to L&D, GBS antibiotic prophylaxis -: Will start mag for severe range blood pressure readings.
--- NOTE | 2019-04-22 07:28 | PDOC.PP ---
Post Progress Note Post Day #: 1 Subjective: Patient id doing well. She is sore, but a different kind of sore than wit her first baby. She is . Has been up to the bathroom for the second time. PO intake tolerated: yes Flatus: yes Ambulation: yes Vital Signs (12 hours) Temp Pulse Resp BP Pulse Ox 04/22/19 04:22 98.3 F 83 18 139/86 98 04/22/19 00:04 98.6 F 90 18 132/80 98 Weight Weight 169 lb - Physical Examination General: NAD Respiratory: non-labored breathing Abdominal: + bowel sounds, lochia (minimal) Fundus firm & at: -1 Extremities: negative homans (B) Skin: CS incision dry & intact Neurological: no gross focal deficits Psychiatric: A&Ox3, normal affect Result Diagrams: 04/21/19 05:18 04/19/19 23:39 Additional Labs: Post Labs Blood Type O POSITIVE 04/19/19 23:39 Hep Bs Antigen Non-Reactive S/CO (NonReactive) 04/19/19 23:39 (1) Status post primary low transverse section Code(s): Z98.891 - HISTORY OF UTERINE SCAR FROM PREVIOUS SURGERY Status: Acute (2) Elevated blood pressure affecting in third trimester, antepartum Code(s): O16.3 - UNSPECIFIED MATERNAL HYPERTENSION, THIRD TRIMESTER Status: Acute - Assessment/Plan A: G2 now P1 sp LTCS for non reasurring FHTs Bradycardia. P: Routine care Possible discharge home tomorrow or Wednesday.
--- NOTE | 2019-04-22 07:30 | PDOC.PP ---
Post Progress Note Post Day #: 2 Subjective: pt is doing well. . having more pain than yesterday. up to walk this morning PO intake tolerated: yes Flatus: yes Ambulation: yes Vital Signs (12 hours) Temp Pulse Resp BP Pulse Ox 04/22/19 04:22 98.3 F 83 18 139/86 98 04/22/19 00:04 98.6 F 90 18 132/80 98 Weight Weight 169 lb - Physical Examination General: NAD Cardiovascular: no m/r/g, RRR Respiratory: clear to auscultation bilaterally, non-labored breathing Abdominal: + bowel sounds, lochia, no distention, appropriately TTP Fundus firm & at: -2 Extremities: negative homans (B) Skin: no rash Neurological: no gross focal deficits Psychiatric: A&Ox3, normal affect Result Diagrams: 04/21/19 05:18 04/19/19 23:39 Additional Labs: Post Labs Blood Type O POSITIVE 04/19/19 23:39 Hep Bs Antigen Non-Reactive S/CO (NonReactive) 04/19/19 23:39 (1) Status post primary low transverse section Code(s): Z98.891 - HISTORY OF UTERINE SCAR FROM PREVIOUS SURGERY Status: Acute (2) Elevated blood pressure affecting in third trimester, antepartum Code(s): O16.3 - UNSPECIFIED MATERNAL HYPERTENSION, THIRD TRIMESTER Status: Acute - Assessment/Plan A: G2 no p2 sp LTCS for bradycardia with NML PPD 2 exam P: Discharge home tomorrow if clinically appropriate.
[2019-04-22] MEDS: Docusate Calcium (SURFAK) 240 MG CAP PO SCH ×2 (08:59→21:33)
[2019-04-22] MEDS: Prenatal Vitamin 1 TAB PO SCH (08:59)
[2019-04-22] MEDS ORDERED: NIFEdipine 10 MG CAP PO SCH (23:15)
[2019-04-23] MEDS: HYDROcodone/Acetaminophen 5/325 mg Tablet PO PRN ×5 (01:37→21:32)
--- NOTE | 2019-04-23 06:56 | PDOC.PP ---
Post Progress Note Post Day #: 3 Subjective: States some breast engorgement, sharda po PO intake tolerated: yes Flatus: yes Ambulation: yes Vital Signs (12 hours) Temp Pulse Resp BP Pulse Ox 04/23/19 05:45 98.5 F 94 16 146/86 H 98 04/23/19 00:05 98.2 F 94 16 126/73 98 04/22/19 22:45 98 18 160/88 H 98 04/22/19 22:30 98.3 F 93 16 160/93 H 98 Weight Weight 169 lb - Physical Examination General: NAD Respiratory: non-labored breathing Abdominal: no distention, appropriately TTP Extremities: negative homans (B) Skin: CS incision dry & intact Neurological: no gross focal deficits Psychiatric: A&Ox3, normal affect Result Diagrams: 04/21/19 05:18 04/19/19 23:39 Additional Labs: Post Labs Blood Type O POSITIVE 04/19/19 23:39 Hep Bs Antigen Non-Reactive S/CO (NonReactive) 04/19/19 23:39 (1) Status post primary low transverse section Code(s): Z98.891 - HISTORY OF UTERINE SCAR FROM PREVIOUS SURGERY Status: Acute (2) Elevated blood pressure affecting in third trimester, antepartum Code(s): O16.3 - UNSPECIFIED MATERNAL HYPERTENSION, THIRD TRIMESTER Status: Acute - Assessment/Plan POD3...states some (expected) breast engorgement. Patient received some oral procardia 10mg last PM for elevated BP in severe range (systolics of 160)...BP 140s systolic this am. We will observe BPs today and see how they do.
[2019-04-23] MEDS: Prenatal Vitamin 1 TAB PO SCH (11:01)
[2019-04-23] MEDS: Docusate Calcium (SURFAK) 240 MG CAP PO SCH ×2 (11:01→21:31)
[2019-04-24] MEDS: Simethicone Chewable 80 MG TAB PO PRN (00:39)
[2019-04-24] MEDS: HYDROcodone/Acetaminophen 5/325 mg Tablet PO PRN ×2 (02:19→06:26)
[2019-04-24] MEDS ORDERED: hydrALAZINE 20 MG/ML VIAL SLOW IVP PRN (06:43)
[2019-04-24] MEDS ORDERED: hydrALAZINE 20 MG/ML VIAL IM PRN (06:47)
[2019-04-24] MEDS ORDERED: NIFEdipine XL 30 MG TAB PO SCH ×2 (08:00→09:00)
[2019-04-24] MEDS: Docusate Calcium (SURFAK) 240 MG CAP PO SCH ×2 (09:10→21:45)
[2019-04-24] MEDS: Prenatal Vitamin 1 TAB PO SCH (09:10)
--- NOTE | 2019-04-24 16:41 | PDOC.PP ---
Post Progress Note Post Day #: 4 Subjective: Patient is doing well. Denies MONTES DE OCA, RUQ pain, vision changes. PO intake tolerated: yes Flatus: yes Ambulation: yes Vital Signs (12 hours) Temp Pulse Resp BP Pulse Ox 04/24/19 13:13 151/84 H 04/24/19 09:11 85 04/24/19 08:10 98.3 F 85 20 157/89 H 97 04/24/19 06:25 164/88 H Weight Weight 169 lb - Physical Examination General: NAD Cardiovascular: no m/r/g Respiratory: non-labored breathing Fundus firm & at: -1 Extremities: negative homans (B) Skin: no rash Neurological: no gross focal deficits Psychiatric: A&Ox3, normal affect Result Diagrams: 04/21/19 05:18 04/19/19 23:39 Additional Labs: Post Labs Blood Type O POSITIVE 04/19/19 23:39 Hep Bs Antigen Non-Reactive S/CO (NonReactive) 04/19/19 23:39 (1) Status post primary low transverse section Code(s): Z98.891 - HISTORY OF UTERINE SCAR FROM PREVIOUS SURGERY Status: Acute (2) Elevated blood pressure affecting in third trimester, antepartum Code(s): O16.3 - UNSPECIFIED MATERNAL HYPERTENSION, THIRD TRIMESTER Status: Acute - Assessment/Plan A: now P2 /sp LTCS for bradycardia with GHTN P: Started on Procardia today 30mg XL, BP Normalizing after medication. BID home blood pressure monitoring - inst to report elevation 150/90 to [facility] office BP check and incision check on Wednesday.
--- NOTE | 2019-04-25 08:14 | PDOC.PP ---
Post Progress Note Post Day #: 5 Subjective: Patient is tearful and ready to dicharge. Denies SOB, Coughing, wheezing, chest pain. Denies pain in calf when walking Denies MONTES DE OCA, RUQ pain, vision changes. PO intake tolerated: yes Flatus: yes Ambulation: yes Vital Signs (12 hours) Temp Pulse Resp BP Pulse Ox 04/25/19 00:20 98 F 113 H 20 149/80 H 04/24/19 21:45 98.7 F 111 H 18 144/74 H 97 Weight Weight 169 lb - Physical Examination General: NAD Cardiovascular: no m/r/g Respiratory: clear to auscultation bilaterally, non-labored breathing Abdominal: lochia, appropriately TTP Extremities: negative homans (B) Skin: no rash Neurological: no gross focal deficits Psychiatric: A&Ox3, normal affect Result Diagrams: 04/21/19 05:18 04/19/19 23:39 Additional Labs: Post Labs Blood Type O POSITIVE 04/19/19 23:39 Hep Bs Antigen Non-Reactive S/CO (NonReactive) 04/19/19 23:39 (1) Status post primary low transverse section Code(s): Z98.891 - HISTORY OF UTERINE SCAR FROM PREVIOUS SURGERY Status: Acute (2) Elevated blood pressure affecting in third trimester, antepartum Code(s): O16.3 - UNSPECIFIED MATERNAL HYPERTENSION, THIRD TRIMESTER Status: Acute - Assessment/Plan A: PPD #5 sp LTCS. Mild tachycardia P: Discharge home today. f/up visit on Wednesday at [facility].
[2019-04-25 11:36] VITALS: BP 144/88; TEMP 98.1
== END 2019-04-25 09:01 | disposition home or self-care (01) | DRG 788 ==
LOC: L&D/OP 22:19 → L&D 04-20 06:09 → 3SE 04-20 13:07
PROVIDERS: ADMIT Obstetrics & Gynecology; ATTEND Obstetrics & Gynecology
PROC: 10D00Z1 Extraction of Products of Conception, Low, Open Approach (ICD-10-PCS; principal; 2019-04-20)
DX: O13.4 Gestational [pregnancy-induced] hypertension without significant proteinuria, complicating childbirth (principal); O76 Abnormality in fetal heart rate and rhythm complicating labor and delivery; R00.0 Tachycardia, unspecified; O99.43 Diseases of the circulatory system complicating the puerperium; Z3A.39 39 weeks gestation of pregnancy; Z37.0 Single live birth; Z88.6 Allergy status to analgesic agent; Z88.1 Allergy status to other antibiotic agents
CPT/HCPCS: 36415; 51702; 80053; 81003; 82805; 85025; 85027; 86780; 86850; 86900; 86901; 87340; 87389; 88307; 99285; J0360; J0690; J1885; J2001; J2274; J2405; J2590; J2765; Q0163; S0020

== ENCOUNTER 2019-04-26 14:02 | Inpatient (IN) | payer BC ==
[2019-04-26 14:46] LABS: #Basophils 0.1 thou/uL (0.0-0.2); #Eosinphils 0.5 thou/uL (0.0-0.7); #Lymphocytes 2.1 thou/uL (1.20-3.40); #Monocytes 0.6 thou/uL (0.11-0.59); #Neutrophils 7.4 thou/uL (1.40-6.50); %Basophils 0.7 % (0.0-1.0); %Eosinophils 4.9 % (0.0-10.0); %Lymphocytes 19.8 % (21.0-51.0); %Monocytes 5.6 % (0.0-10.0); Hemoglobin 13.8 g/dL (12.0-16.0); Mean Corpuscular Hemoglobin 29.1 pg (27.0-31.0); Mean Corpuscular Volume 90.9 fL (78.0-98.0); Mean Platelet Volume 8.1 fL (7.4-10.4); Platelet Count 303 thou/uL (130-400); RBC Distribution Width 11.6 % (11.5-14.5); Red Blood Cell (RBC) Count 4.73 mill/uL (4.20-5.40); White Blood Cell (WBC) Count 10.7 thou/uL (4.8-10.8)
[2019-04-26 15:12] LABS: ALT (SGPT) 27 U/L (8-55); AST (SGOT) 22 U/L (5-34); Alkaline Phosphatase 122 U/L (40-110); Anion Gap 14 mmol/L (10-20); BUN (Urea Nitrogen) 16 mg/dL (7.0-18.7); Bilirubin, Total 0.4 mg/dL (0.2-1.2); Calc. Creatinine Clearance 0 mL/min (70-130); Calcium 9.1 mg/dL (7.8-10.44); Carbon Dioxide 19 mmol/L (22-29); Chloride 110 mmol/L (98-107); Estimated GFR-MDRD Greater than 90; Globulin 3.4 g/dL (2.4-3.5); Glucose 83 mg/dL (70-105); Potassium 3.9 mmol/L (3.5-5.1); Protein, Total 7.4 g/dL (6.0-8.3); Sodium 139 mmol/L (136-145)
[2019-04-26] MEDS ORDERED: hydrALAZINE 20 MG/ML VIAL ONE (15:30)
[2019-04-26] MEDS ORDERED: Magnesium Sulfate 20 GM in Dextrose 5% in Water 460 ML IV SCH (15:32)
[2019-04-26] MEDS ORDERED: Iopamidol-370 76% 500 ML 1 ML ONE (15:51)
--- NOTE | 2019-04-26 17:54 | CT ---
Exam: CT angiogram of the chest HISTORY: Hypertension. Blurred vision. COMPARISON: None TECHNIQUE: CT angiogram of the chest is performed in the axial plane. Three-dimensional reformatted i mages are submitted for interpretation FINDINGS: Mediastinum: No mass, lymphadenopathy or hematoma. HEART: Normal size. No significant pericardial fluid. Aorta: No aneurysm or dissection Upper solid abdominal viscera: No abnormality enhancement. Trachea and central bronchi: Patent Pleural spaces: No effusion Lung parenchyma: No masses or consolidation. Pneumothorax: None Osseous structures: No lytic or blastic lesions Pulmonary arteries: Adequate contrast opacification pulmonary arterial system to the level of segment al arteries. No filling defect to suggest pulmonary embolism IMPRESSION:No evidence of pulmonary artery embolism to the level of the segmental arteries.
[2019-04-26] MEDS ORDERED: hydrALAZINE 20 MG/ML VIAL SLOW IVP PRN (18:00)
[2019-04-26] MEDS ORDERED: Magnesium Sulfate 20 gm/500 ml 20 GM/500 ML BAG IVPB SCH (18:00)
[2019-04-26] MEDS ORDERED: Ondansetron PF 4 MG/2 ML Vial IVP PRN (18:00)
[2019-04-26] MEDS ORDERED: Calcium Gluconate 4.6 MEQ in Sodium Chloride 0.9% 100 ML IVPB PRN (18:00)
[2019-04-26 18:23] LABS: Bacteria/HPF None Seen HPF (None Seen); Bilirubin Negative (Negative); Blood, Urine 1+ (Negative); Clarity Clear (Clear); Glucose, Urine (Dipstick) Normal (Negative); Leukocyte Negative Leu/uL (Negative); Nitrite Negative (Negative); Protein, Urine (Dipstick) Negative (Neg-Trace); RBC/HPF 0-3 HPF (0-3); Squamous Epithelial 0-3 HPF (0-3); Urobilinogen Normal mg/dL (Less than 2); WBC/HPF 0-3 HPF (0-3)
[2019-04-26] MEDS ORDERED: Sodium Chloride 0.9% 500 ML IV SCH ×2 (21:00→21:15)
[2019-04-26] MEDS ORDERED: Polyethylene Glycol 3350 17 GM Packet PO SCH (21:00)
[2019-04-27] MEDS: Acetaminophen 500 MG TAB PO PRN ×3 (00:24→22:18)
--- NOTE | 2019-04-27 01:03 | HP ---
ADMITTING DIAGNOSIS: Severe gestational hypertension versus preeclampsia. HOSPITAL COURSE: The patient is a 28-year-old G2, P1 female presenting to the emergency room with severe range of blood pressures at home, headache and vision changes. The patient has been on Procardia XL 30 mg daily since the delivery of her child prior to discharge home. The patient was never formally evaluated, the best I can tell for preeclampsia at that time. At home, on taking the medication patient was noted by herself to have severe range pressures today with the other symptomatology described and was counseled to come to the emergency room for evaluation. Downstairs in the emergency room, her lab workup was negative for changes associated with preeclampsia. However, she does have a uric acid of 5.8. Given the patient's exam and symptomatology, emergency room physician was concerned with preeclampsia and loaded her on magnesium and sent her to Labor and Delivery for further evaluation. The patient confirms the headaches that she has had for the last several days and the elevated pressures at home. The patient has a history of HELLP syndrome with her previous and particularly concerned about a relapse of this. The patient on the time of my evaluation still reports a headache being present. She denies any vision changes. She denies nausea, vomiting, diarrhea, constipation, hip problems, knee problems, muscle weakness. PAST MEDICAL HISTORY: Negative. PAST SURGICAL HISTORY: Negative. ALLERGIES: AMOXICILLIN, KEFLEX, IBUPROFEN. SOCIAL HISTORY: Denies drug alcohol tobacco use. CURRENT MEDICATIONS: 1. [place]and. 2. Procardia XL 30 mg daily. PHYSICAL EXAMINATION: VITAL SIGNS: Initial blood pressure with us is 134/77, heart rate of 21, respiratory rate 18, temperature 98.3. GENERAL: She appears to be in no acute distress. She is alert, oriented, cooperative, and pleasant to interact with feeding her baby at the time of our evaluation. HEART AND LUNGS: Clear and regular. ABDOMEN: Soft. EXTREMITIES: Nontender, nonedematous. DTRs are brisk with clonus. Nursing staff is going to be collecting gonorrhea and chlamydia and Trichomonas, VP3 vaginally and urine for urine culture and urinalysis. The patient has been sent to the floor on magnesium and we will continue that for the foreseeable future. ASSESSMENT AND PLAN: The patient is a 28-year-old female who is about 1 week for primary section. She is here for exacerbation of her blood pressures down in the emergency room. She was given 20 of hydralazine IV and was noted to have rebound tachycardia here. The patient has received IV bolus of fluid, which has brought her pulse down to the one-teens. She had a pulmonary embolus workup in the emergency room prior to coming up, which was negative. The patient likely is experiencing preeclampsia versus gestational hypertension. She will be placed on rest. We will increase her Procardia XL 30 mg to 60 mg daily. Labs had already been ordered to evaluate her status of preeclampsia. The patient has had no evidence at this time concerning this . PLAN: At this time is the patient will continue on magnesium for a seizure prophylaxis here in the period for 12 to 24 hours depending on how quickly she diureses. With the 20 mg of hydralazine on board now and beginning of her evening dose of Procardia XL. Hopefully, we will have good coverage for her to good to be home by tomorrow. Job ID: [id number]
[2019-04-27 02:02] VITALS: BMI 33.0
[2019-04-27] MEDS ORDERED: diphenhydrAMINE 50 MG/ML VIAL IVP PRN (07:27)
[2019-04-27] MEDS ORDERED: Metoclopramide HCl 10 MG/2 ML VIAL IVP PRN (07:27)
[2019-04-27] MEDS ORDERED: NIFEdipine XL 60 MG TAB PO SCH (07:45)
--- NOTE | 2019-04-27 08:11 | PRG ---
DATE OF SERVICE: 04/27/2019 SUBJECTIVE: The patient is a 28-year-old female, who was readmitted to the hospital for concerns of preeclampsia. She has been on magnesium since about 3 o'clock yesterday. The patient this morning reports that she is having a persistent headache that she says is worse with the light. There is pressure concentrated behind her eye. The Tylenol did help it some last night, but has not resolved. The patient denies any shortness of breath or abdominal pain. OBJECTIVE: VITAL SIGNS: Blood pressures overnight have been in the 140s to 150s, current blood pressure is 141/79; heart rate of 100; and respiratory rate of 18. GENERAL: She appears to be in no acute distress. She is alert and oriented, cooperative and pleasant to interact with. HEENT: Head; normocephalic, atraumatic. LUNGS: Clear to auscultation bilaterally. Incision is clean, dry, and intact. EXTREMITIES: Nontender with SCDs in place and minimal edema. DTRs are 2+ and seem to be less brisk than yesterday. Urine output since arrival has been about 2400 mL. ASSESSMENT AND PLAN: The patient is a 28-year-old female with presumed preeclampsia, on magnesium for seizure prophylaxis. We have increased her Procardia XL, which was at 30 mg at her last discharge up to 60 mg this morning. I will be treating her headache as a migraine with Benadryl and Reglan to see if that improves. We also did discuss the possibility that the Procardia is the source of her headache, though the patient has been on Procardia for multiple days without any side effects. We will reassess later this morning as to the effectiveness of treatment. I anticipate discharge of the magnesium this afternoon and then we will be watching her for at least another 24 hours to see if the blood pressure medication is taking proper effect. Job ID: [id number]
--- NOTE | 2019-04-27 08:18 | PDOC.EVN ---
Event Note - Event Note Event Note: [employer] Team Member ObGyn At check out. On Procardia 60mg XL. Hydralazibne gave tachycardia Off Mag at 1500 Labs wnl Currently on atypical migraine regime for MONTES DE OCA that sounds more like migraine than PrE
[2019-04-27] MEDS: Polyethylene Glycol 3350 17 GM Packet PO SCH (08:26)
--- NOTE | 2019-04-27 09:59 | PRG ---
DATE OF SERVICE: 04/27/2019 TIME OF EVALUATION: Roughly 0920 hours until 0926 hours. Time now is 0933 hours. HOSPITAL DAY: Hospital day #1. LOCATION: [facility] in Labor and Delivery. In brief, this patient was admitted by Dr. Fournier yesterday for /postoperative PIH exacerbation. She was sent home after her , which was done urgently for decelerations. The patient had elevated blood pressure at home and was first evaluated in the ER before being sent to Labor and Delivery, where she began magnesium sulfate seizure prophylaxis. No seizure activity reported. While she was in the ER, she did receive Apresoline/hydralazine, which caused reflex tachycardia. The patient is currently on Procardia 60 mg XL 1 p.o. daily. This is an increased dose per Dr. Fournier. The patient's magnesium sulfate will continue until approximately 1500 hours today, which is her 24 hours. I did evaluate the patient's laboratory data, and her hematocrit is 43, which may be a little hemoconcentrated compatible with PIH. Platelets are 303. Creatinine is 0.66. AST and ALT are both normal. Her urine protein is negative, which is reassuring. At bedside, the patient was sleeping after her Benadryl and Reglan given for atypical migraine treatment. Upon arousal, she stated that she felt better. I did not have the nurse in the room to try to minimize the patient's stimulation. The patient's , however, was in the room, and we wrote down our treatment management plan on the [facility] era board. ASSESSMENT: This is a patient, who is postoperative 7 days status post primary section with blood pressure exacerbation/ -induced hypertension. Magnesium sulfate in use. PLAN: 1. Continue magnesium sulfate. 2. Labs are within normal limits. 3. The patient is nonproteinuric. 4. Continue medication adjustment, but for now, continue 60 mg XL as stated. Job ID: [id number]
--- NOTE | 2019-04-27 14:36 | PDOC.EVN ---
Event Note - Event Note Event Note: BPs reviewed. Nonsevere. OK to stop Mag for now
--- NOTE | 2019-04-27 17:20 | PDOC.EVN ---
Event Note - Event Note Event Note: Doing well. BPs reviewed and are from 120-140/80s-90s Plan for floor transfer later this PM
--- NOTE | 2019-04-28 07:31 | DIS ---
DATE OF ADMISSION: 04/26/2019 DATE OF DISCHARGE: 04/28/2019 DIAGNOSIS: hypertension/-induced hypertension. In brief, this patient was evaluated in the emergency room initially for preeclampsia. She was given a loading dose of magnesium sulfate and then proceeded to have other diagnostic tests including a chest/thorax CTA for reflex tachycardia after the initial antihypertensive medication was given. The impression of the CTA was that there was no evidence of pulmonary artery embolism to the level of the segmental arteries. She was sent back to Labor and Delivery after that ER evaluation, where she was placed on magnesium sulfate for maintenance and blood pressure medication adjustment. She was given nifedipine at 60 mg XL one p.o. daily, which was an increase from her 30 mg XL daily. Apresoline was not given due to the reflex tachycardia, which she felt previously. She actually had good blood pressure control with ranges of 130 to 140 over the 80s without acute exacerbation. There was no evidence of vaginal bleeding or abdominal complication. I evaluated the patient on April 28, 2019, at 6:20 to 6:40 in the morning at bedside. I talked with her and her and they both felt comfortable with discharge home. We will send her home on the 60 mg XL and we will have her follow up on Wednesday with Kiarra Lucero for blood pressure check. Job ID: [id number]
[2019-04-28 08:59] VITALS: TEMP 98.4
[2019-04-28] MEDS ORDERED: NIFEdipine XL 60 MG TAB PO SCH (09:00)
[2019-04-28] MEDS: Polyethylene Glycol 3350 17 GM Packet PO SCH (09:24)
[2019-04-28 12:09] VITALS: BP 141/83
== END 2019-04-28 13:30 | disposition home or self-care (01) | DRG 776 ==
LOC: ERS 14:02 → L&D 19:57 → 3SW 04-27 19:11
PROVIDERS: ADMIT Obstetrics & Gynecology; ATTEND Obstetrics & Gynecology
DX: O13.5 Gestational [pregnancy-induced] hypertension without significant proteinuria, complicating the puerperium (principal); H53.8 Other visual disturbances; Z88.1 Allergy status to other antibiotic agents; Z88.8 Allergy status to other drugs, medicaments and biological substances
CPT/HCPCS: 71275; 80053; 81003; 81015; 84443; 84550; 85025; 93005; 99285; J0360; J1200; J2765; J3475; J7070; Q9967